=== PATIENT | male | born 1955 | race Caucasian/White ===

== ENCOUNTER → 2016-05-25 | Outpatient (CLI) | payer OTHER ==
[2016-05-25 07:30] LABS: HEMOGLOBIN A1C 8.18 % (4.2-6.0); MEAN BLOOD GLUCOSE (CALC) 186.394 mg/dL
[2016-05-25 07:31] LABS: ASPARTATE AMINO TRANSFERASE 50 IU/L (21-57); BILIRUBIN,TOTAL 0.8 mg/dL (0.3-1.2); BLOOD UREA NITROGEN 17 mg/dL (7-22); BUN/CREATININE RATIO 28.33 (6-20); CALCIUM 8.6 mg/dL (8.7-10.7); CHLORIDE 105 meq/L (98-112); CREATININE 0.6 mg/dL (0.70-1.50); EST GLOMERULAR FILTRATION > 60 (>60 ml/min/1.73m(2)); GLUCOSE 178 mg/dL (78-110); HDL CHOLESTEROL 27 mg/dL (40-150); POTASSIUM 4.5 meq/L (3.8-5.2); SODIUM 138 meq/L (135-145); TOTAL PROTEIN 7.2 g/dL (6.1-8.0); TRIGLYCERIDES 131 mg/dL (44-200)
[2016-05-25 07:37] LABS: CREATININE, URINE 230.9 MG/DL (15-500)
== END ==
LOC: LAB 07:04
PROVIDERS: ATTEND Internal Medicine
DX: E11.9 Type 2 diabetes mellitus without complications (principal); E78.5 Hyperlipidemia, unspecified
CPT/HCPCS: 36415; 80053; 80061; 82043; 82550; 83036

== ENCOUNTER 2016-06-16 02:29 | Observation (INO) | payer OTHER ==
[2016-06-16] MEDS: Sodium Chloride 0.9% 1,000 ML PRIMARY IV ONE ×2 (02:34→04:00)
[2016-06-16] MEDS ORDERED: LORazepam 2 MG/1 ML VIAL IVP ONE (02:43)
[2016-06-16] MEDS ORDERED: MORPHINE SULFATE 4 MG/1 ML IVP ONE (02:43)
[2016-06-16] MEDS: NITROGLYCERIN 0.4 MG SL TAB (BOTTLE OF 3) SL ONE ×2 (02:43→03:25)
[2016-06-16] MEDS ORDERED: ASPIRIN 81 MG (BABY) CHEWABLE TABLET PO ONE (02:45)
[2016-06-16 02:48] LABS: BASOPHILS # (AUTO) 0.03 10*3/UL; BASOPHILS % (AUTO) 0.2 % (0-1); EOSINOPHILS % (AUTO) 0.3 % (0-8); HEMATOCRIT 51.6 % (42.0-52.0); HEMOGLOBIN 18.4 g/dL (14.0-18.0); IMM GRAN % (AUTO) 0.2 % (0-5); IMM GRAN# (AUTO) 0.03 10*3/UL; LYMPHOCYTES # (AUTO) 2.88 10*3/uL; LYMPHOCYTES % (AUTO) 20.1 % (10-50); MEAN CORPUSCULAR HEMOGLOBIN 32.4 PG (27-31); MEAN CORPUSCULAR HGB CONC 35.7 g/dL (33-37); MEAN PLATELET VOLUME 10.5 FL (7.4-12.2); MONOCYTES # (AUTO) 1.36 10*3/UL (0.3-0.8); MONOCYTES % (AUTO) 9.5 % (5-15); NEUTROPHILS # (AUTO) 9.95 10*3/UL; NEUTROPHILS % (AUTO) 69.7 % (50-80); PLATELET MORPHOLOGY COMMENT NORMAL MORPHOLOGY (NORM); RDW COEFFICIENT OF VARIATION 12.5 % (11.5-14.5); RED BLOOD COUNT 5.68 10^6/uL (4.70-6.10)
[2016-06-16] MEDS: ONDANSETRON 4 MG/2 ML VIAL IVP ONE ×2 (02:50→03:45)
--- NOTE | 2016-06-16 02:50 | PDOC ---
Chest Pain HPI - General Chief Complaint: Chest Pain Stated Complaint: LEFT JAW PAIN THAT RADIATES TO L SHOULDER/WRIST Date Seen by Provider: 06/16/16 Time Seen by Provider: 02:47 Source: Patient Exam Limitations: POSITIVE: No limitations Treatment Prior to Arrival: REPORTS: None Nurse's Notes Reviewed & Considered: Yes - History of Present Illness Initial Comments: Patient comes in to the chief complaint of chest pain. Tonight at approximately 7:30 patient began to develop left-sided chest pain with radiation to his neck shoulder and elbow on the left. He has associated shortness of breath. He has been having some diaphoresis, with nausea but no vomiting. He attempted to go to sleep however, the pain kept him from sleeping. He is coming in now for further evaluation. Patient has a known left bundle-branch block. Body Location Affected: REPORTS: Neck, Chest Timing: REPORTS: Abrupt Duration: 4-6 hours Severity: Moderate Context: REPORTS: Rest Quality: REPORTS: Sharpness, Stabbing, Pressure Radiation: REPORTS: Jaw (L), Neck (L), Shoulder (L), Arm (L) Associated Symptoms: REPORTS: Nausea, Diaphoresis, Shortness of Breath Modifying Factors: improves with: None Reported Similar Symptoms Previously: Yes (10 years ago) Recently seen/treated/hospitalized: No Any Prior Injuries Related to Current Complaint?: No - Patient Home Medications Home Medications: Home Medications Dapagliflozin/Metformin HCl [Xigduo Xr 10 Mg-1,000 Mg Tab] 1 each PO QD #90 tab 09/23/15 Rivaroxaban [Xarelto] 1 tab PO QPM #90 tab 09/23/15 Lorazepam 1 tab PO QHS PRN #90 09/28/15 Tizanidine HCl 1 - 2 tab PO QHS PRN #30 tab 10/05/15 Atorvastatin Calcium [Lipitor] 1 tab PO QHS #90 tab-cap 11/28/15 Losartan Potassium 0.5 tab PO QD #45 tab 05/28/16 Meloxicam 1 tab PO DAILY #90 tab 06/06/16 Sitagliptin Phos/Metformin HCl [Janumet 50-1,000 mg Tablet] 1 each PO DAILY 07/30 - Patient Allergies Allergies/Adverse Reactions: Allergies Allergy/AdvReac Type Severity Reaction Status Date / Time No Known Drug Allergies Allergy NOT Verified 06/16/16 02:32 APPLICABLE Past Medical History - heen HEENT History: Denies History Cardiovascular History: Hypertension, DVTs, Hyperlipidemia Respiratory History: Pulmonary Embolism Additional Respiratory History: had PE in April 2011 Gastrointestinal History: GI Bleed Additional Gastrointestinal History: s/p colonoscopy 12/27 12 2 polyps removed Genitourinary History: Denies History Endocrine History: Type 2 Diabetes (oral) Additional Endocrine History: take blood sugar in the morning and sometimes during the day--takes metformin 1000 mg in the morning-- Musculoskeletal History: Muscle Weakness, Other (please comment) Prosthesis or Implant: No Additional Musculoskeletal History: HX OF DVT, leg cramps Neurological History: Denies History Additional Neurological History: RECENT HEADACHE . HAD CT OF HEAD,WHICH WAS NEGATIVE Blood Disorders: Previous Bld Transfusions Psychiatric History: Denies History History of Sexually Transmitted Diseases: No Male Reproductive History: Denies History Cancer History: Denies History In Past Year Been Physically Harmed or Verbally Threatened: No History of MDRO: No History of Other Communicable Diseases: No Tobacco Use: Current Every Day Smoker Alcohol Use: Rarely Substance Use Type: None Previous Surgical History: Yes Type / Date of Surgery: bilat shoulderbilat kneelt achilles tendoncolonoscopy Anesthesia Reactions: No Significant Family History: No pertinent family hx ROS - Limitations ROS Limitations: No Limitations Constitution: REPORTS: Diaphoresis Cardiovascular: REPORTS: Chest Pain Respiratory: REPORTS: Shortness Of Breath Neurological: REPORTS: Denies Neuro Symptoms Gastrointestinal: REPORTS: Nausea Endocrine: REPORTS: Denies Symptoms Musculoskeletal: REPORTS: Denies MS Symptoms Genitourinary: REPORTS: Denies Symptoms Eyes: REPORTS: Denies Symptoms ENT: REPORTS: Denies Symptoms Skin: REPORTS: Denies Skin Symptoms Lympathic: REPORTS: Denies Lympathic Symptoms Immunologic: POSITIVE: Denies Symptoms Psychiatric: POSITIVE: Anxiety Chest Pain PE - General Appearance General Appearance: REPORTS: Alert, Cooperative, No Evidence of Trauma, Moderate Distress - HEENT HEENT: POSITIVE: Head Inspection Nml, Eyes Inspection Nml, Ears Inspection Nml, Nose Inspection Nml, PERRL, EOMI - Neck Neck: REPORTS: Normal Inspection, No Carotid Bruit - Respiratory Respiratory: REPORTS: Breath Sounds Normal, Chest Non-Tender - Cardiovascular Cardiovascular: REPORTS: Regular Rate and Rhythm, Heart Sounds Normal - Abdomen Abdomen: Soft: (All Quadrants), Normal Bowel Sounds: (All Quadrants), Denies Tenderness: (All Quadrants) - Skin Skin: REPORTS: Intact, Normal For Race, Warm, Diaphoresis - Extremities Extremity: Non-Tender: (All Extremities), Normal ROM: (All Extremities), Normal Inspection: (All Extremities) - Neurological / Psychological Neurological: POSITIVE: Affect Apporpriate, Oriented X3 Chest Pain Progress - Results Reviewed by me Xrays/CTs/US Reviewed by me: Yes Discussed with Radiologist: No Lab Results Reviewed: Yes Lab Results:: Laboratory Results 06/16/16 06/16/16 Range/Units 02:43 02:53 WBC 14.30 H (4.8-10.8) 10^3/uL RBC 5.68 (4.70-6.10) 10^6/uL Hgb 18.4 H (14.0-18.0) g/dL Hct 51.6 (42.0-52.0) % MCV 90.8 H (80-90) FL MCH 32.4 H (27-31) PG MCHC 35.7 (33-37) g/dL RDW Std Deviation 41.4 (39-50) fL RDW Coeff of Jossie 12.5 (11.5-14.5) % Plt Count 143 (140-350) 10*3/uL MPV 10.5 (7.4-12.2) FL Immature Gran % (Auto) 0.2 (0-5) % Neut % (Auto) 69.7 (50-80) % Lymph % (Auto) 20.1 (10-50) % [place] % (Auto) 9.5 (5-15) % Eos % (Auto) 0.3 (0-8) % Baso % (Auto) 0.2 (0-1) % Immature Gran # (Auto) 0.03 10*3/UL Neut # (Auto) 9.95 10*3/UL Lymph # (Auto) 2.88 10*3/uL [place] # (Auto) 1.36 H (0.3-0.8) 10*3/UL Eos # (Auto) 0.05 10*3/UL Baso # (Auto) 0.03 10*3/UL WBC Morphology Comment Normal morphology (NORM) Plt Morphology Comment Normal morphology (NORM) RBC Morph Comment Normal morphology (NORM) PT 13.2 H (9.7-11.4) secs INR 1.28 (0.00-5.90) N/A D-Dimer 0.42 (0.00-0.59) mg/L Sodium 138 (135-145) meq/L Potassium 4.4 (3.8-5.2) meq/L Chloride 102 (98-112) meq/L Carbon Dioxide 23 (23-33) meq/L Anion Gap 13 (5-20) BUN 17 (7-22) mg/dL Creatinine 0.7 (0.70-1.50) mg/dL Estimated GFR > 60 (>60 ml/min/1.73m(2)) BUN/Creatinine Ratio 24.28 H (6-20) Glucose 134 H (78-110) mg/dL Calculated Osmolality 289.0 (267-292) mOsm/kg Calcium 9.7 (8.7-10.7) mg/dL Magnesium 1.7 (1.6-2.4) mg/dL Total Bilirubin 1.1 (0.3-1.2) mg/dL AST 33 (21-57) IU/L ALT 54 (21-72) IU/L Alkaline Phosphatase 97 (38-126) IU/L Troponin I < 0.012 (< 0.040) ng/mL NT-Pro-B Natriuret Pep 54.6 (0-125) PG/ML Total Protein 7.9 (6.1-8.0) g/dL Albumin 4.8 (3.5-4.8) g/dL Globulin 3.1 (2.50-4.10) g/dL Albumin/Globulin Ratio 1.50 (1.3-2.0) mg/g TSH 3.34 (0.2700-4.2000) uIU/mL EKG Interpreted/Reviewed By Me:: Yes EKG Interpretation:: POSITIVE: Abnormal EKG (Sinus with a sinus bradycardia and a left bundle branch block. No ST elevation is noted.), Repeat EKG - Patient's Progress Pain Medication Addressed: POSITIVE: Yes Re-Examine Time: 03:42 Status: POSITIVE: Unchanged MDM / ED Course: Patient was examined, an IV started, blood drawn and sent to the lab for studies , 2 EKGs were obtained, and chest x-ray. Patient received sublingual nitroglycerin which resulted in improvement of his pain. He had episode of bradycardia after the sublingual nitroglycerin. Patient received a liter of normal saline, morphine sulfate, and Zofran. Findings: EKG shows left bundle branch block with a sinus rhythm. The first EKG showed a sinus tachycardia with a rate of 100 minute and a left bundle branch block per my interpretation. Second EKG after receiving nitroglycerin and development of bradycardia showed sinus bradycardia with a left bundle branch block and a rate of approximately 55 beats a minute. No ST elevations were found per my application on either of these EKGs. Laboratory findings: Troponin, d-dimer is normal, CBC shows a white count of 14, BNP is normal, TSH is normal. Chest x-ray per my interpretation shows no acute cardiopulmonary decompensation. Assessment: Chest pain in a patient with positive risk factors which includes diabetes mellitus. Plan: Admission, rule out [place]. Quality Measure Initiative: CP/AMI: POSITIVE: EKG, ASA, ACS Risk Quality Measure Initiative: CAP: POSITIVE: VS, CXR or CT - Consult Consult (If Yes, Name of Consulting MD & Time Called): Yes (Dr. Dumont: [phone]) Consulting MD will see pt:: POSITIVE: [facility] [place] Admit Counseled: POSITIVE: Patient, Family, RE: Lab Results, RE: Radiology Results, RE : DX Patient Care Time - Estimated PCT Patient Care Time (In Minutes): 30 Vital Signs - VS Reviewed Vital Signs Reviewed: Yes Discharge Clinical Impression: Chest pain Discharge Disposition: Admit to Inpatient Condition: Stable Patient Instructions Given at Discharge: Chest Pain (ED) Date Decision to Admit to Inpatient: 06/16/16 Time Decision to Admit to Inpatient: 03:44
[2016-06-16 02:52] LABS: ASPARTATE AMINO TRANSFERASE 33 IU/L (21-57); BILIRUBIN,TOTAL 1.1 mg/dL (0.3-1.2); BLOOD UREA NITROGEN 17 mg/dL (7-22); BUN/CREATININE RATIO 24.28 (6-20); CALCIUM 9.7 mg/dL (8.7-10.7); CHLORIDE 102 meq/L (98-112); CREATININE 0.7 mg/dL (0.70-1.50); EST GLOMERULAR FILTRATION > 60 (>60 ml/min/1.73m(2)); GLUCOSE 134 mg/dL (78-110); POTASSIUM 4.4 meq/L (3.8-5.2); SODIUM 138 meq/L (135-145); TOTAL PROTEIN 7.9 g/dL (6.1-8.0)
[2016-06-16 02:58] LABS: PROTHROMBIN TIME 13.2 secs (9.7-11.4)
[2016-06-16 02:58] LABS: MAGNESIUM 1.7 mg/dL (1.6-2.4)
[2016-06-16] MEDS ORDERED: NORMAL SALINE 10 ML SYRINGE FLUSH IVP PRN (04:39)
[2016-06-16] MEDS ORDERED: ONDANSETRON 4 MG/2 ML VIAL IVP PRN (05:11)
[2016-06-16] MEDS ORDERED: Sodium Chloride 0.9% 1,000 ML PRIMARY IV SCH (05:15)
--- NOTE | 2016-06-16 05:17 | EKG ---
[address] [address] Measurements Intervals [place] Rate: 100 P: 79 MD: 162 QRS: -23 QRSD: 146 T: 112 QT: 362 QTc: 419 Interpretive Statements SINUS TACHYCARDIA LEFT BUNDLE BRANCH BLOCK Compared to ECG 12/04/2013 07:23:38 Sinus rhythm no longer present Electronically Signed On 06-16-16 15:24:09 [facility] by Piotr Buchanan [email or web address]
[2016-06-16] MEDS ORDERED: MORPHINE SULFATE 2 MG/1 ML IVP PRN (05:50)
--- NOTE | 2016-06-16 05:56 | EKG ---
[address] [place] [address] Measurements Intervals [place] Rate: 56 P: 46 GA: 143 QRS: -40 QRSD: 158 T: 124 QT: 433 QTc: 425 Interpretive Statements SINUS BRADYCARDIA LEFT AXIS DEVIATION LEFT BUNDLE BRANCH BLOCK Compared to ECG 06/16/2016 02:35:05 Sinus tachycardia no longer present Electronically Signed On 06-16-16 15:23:16 [facility] by Piotr Buchanan [email or web address]
--- NOTE | 2016-06-16 05:59 | PDOC ---
History and Physical - History of Present Illness Date and Time of Service: 06/16/2016 5:52 AM Chief Complaint: Chest pain started last night History of Present Illness: This is a 60 years old male with medical history significant for history of diabetes, history of previous DVT and PE, hypercholesterolemia who came into the hospital because of history of chest pain. He said at 7 PM last night he was sitting in a chair and then started to have some pain he described as sharp in the left side of the jaw coming and going and also the left neck then he started to have some pain in the left upper chest more towards the shoulder then had pain in left the arm there was some dizziness, shortness of breath and the some sweating. He could not sleep and because of that he came into the ER this morning. In the ER he was giving nitroglycerin he thinks that helped his pain. He rated his pain when he came in 8 out of 10. He did have some nausea also. Never had this pain before. After the nitroglycerin his pain improved and he was admitted for further investigations. He feels better than when he came in. Still have some pain in the left shoulder described more as aching rated 3 out of 10. Past Medical History Medical History: 1. Diabetes on oral hypoglycemic agents. 2. History of DVT and previous PE on Xarelto. 3. History of colonic polyp 2011. 4. History of transient atrial fibrillation after a GI bleeding post colonoscopy, he had a stress test and an angiogram done in 2011 was normal according to him. 5. Sleep apnea. 6. Hypercholesterolemia. 7. He is on losartan but he said it's more for protecting the kidneys Surgical History: 1. History of neck surgery 18 months ago. 2. History of previous knee scopes Pertinent Family History: History of heart disease in his father Past Social History: Used to smoke heavily more than a pack a day for 20 years, now just smokes occasionally cigars, drinks occasionally no drugs. Tobacco Use: Current Every Day Smoker Substance Use Type: None Alcohol Use: Occasionally Medication / Allergies Home Medications: Home Medications Medication Instructions Recorded Confirmed Type Dapagliflozin/Metformin HCl 1 each PO QD #90 tab 09/23/15 06/16/16 Clinic [Xigduo Xr 10 Mg-1,000 Mg Tab] Rivaroxaban [Xarelto] 1 tab PO QPM #90 tab 09/23/15 06/16/16 Clinic Lorazepam 1 tab PO QHS PRN #90 09/28/15 06/16/16 Clinic Tizanidine HCl 1 - 2 tab PO QHS PRN #30 tab 10/05/15 06/16/16 Clinic Atorvastatin Calcium [Lipitor] 1 tab PO QHS #90 tab-cap 11/28/15 06/16/16 Clinic Losartan Potassium 0.5 tab PO QD #45 tab 05/28/16 06/16/16 [facility] Meloxicam 1 tab PO DAILY #90 tab 06/06/16 06/16/16 Clinic Sitagliptin Phos/Metformin HCl 1 each PO DAILY 06/16/16 06/16/16 History [Janumet 50-1,000 mg Tablet] Allergies/Adverse Reactions: Allergies Allergy/AdvReac Type Severity Reaction Status Date / Time No Known Drug Allergies Allergy NOT Verified 06/16/16 08:05 APPLICABLE Review of Systems - Review of Systems All Systems: Reviewed & No Additional Complaints Except as Stated Exam - Vitals Vital Signs: Vital Signs Temperature 98.8 F Temperature Source Temporal Artery Scan Pulse Rate [Telemetry] 84 Respiratory Rate 18 Blood Pressure [Left Arm] 105/70 Pulse Ox 93 Oxygen Flow Rate 1.5 Oxygen Delivery Method Nasal Cannula Height 6 ft 4 in Weight 244 lb - General General Appearance: POSITIVE: No Acute Distress, Cooperative - Head Head Exam: POSITIVE: Normal Inspection, Atraumatic - Eye Eye Exam: POSITIVE: Normal Appearance - ENT ENT Exam: POSITIVE: Normal Exam - Neck Neck Exam: POSITIVE: Normal Inspection - Respiratory Respiratory Exam: POSITIVE: Clear to Auscultation - Bilaterally - Cardiovascular Cardiovascular Exam: POSITIVE: RRR - GI/Abdominal GI/Abdominal Exam: POSITIVE: Normal Bowel Sounds, Non Tender, Non Distended, Soft - Rectal Rectal Exam: POSITIVE: Deferred - External Exam: POSITIVE: Deferred Exam: POSITIVE: Deferred - Extremities Extremities Exam: POSITIVE: Normal Inspection - Back Back Exam: POSITIVE: Normal Inspection - Neurological Neurological Exam: POSITIVE: Alert, Oriented x 3, CN II-XII Intact, Moves All Extremities Equally - Psychiatric Psychiatric Exam: POSITIVE: Normal Affect - Integumentary Integumentary Exam: POSITIVE: Normal Color Results - Labs CBC and BMP: 06/16/16 02:43 06/16/16 02:43 - EKG Data -: EKG Interpreted by Me Rate: Tachycardia EKG Shows Normal: Sinus Rhythm - EKG Data Additional EKG Details: Left bundle branch block which is old - Imaging Status: Image Reviewed by Me (Chest x-ray no obvious infiltrate, no cardiomegaly ) Assessment and Plan - Patient Problems (1) Chest pain Current Visit: Yes Status: Acute Comment: We will repeat his cardiac enzymes, his EKG showed left bundle branch block and this is old, and will order Lexiscan stress test. If his pain persiste I may speak with cardiology. (2) Diabetes Current Visit: Yes Status: Acute Comment: Same medications (3) History of DVT (deep vein thrombosis) Current Visit: Yes Status: Acute Comment: Continue Xarelto
[2016-06-16] MEDS ORDERED: NITROGLYCERIN 0.4 MG SL TAB (BOTTLE OF 3) SL PRN (06:11)
[2016-06-16] MEDS ORDERED: metFORMIN 500 MG TABLET PO SCH (09:00)
[2016-06-16] MEDS ORDERED: sitaGLIPtin Tab 100 MG TAB PO SCH (09:00)
[2016-06-16] MEDS ORDERED: LOSARTAN 25 MG TABLET PO SCH (09:00)
[2016-06-16] MEDS: DAPAGLIFLOZIN PO SCH (09:07)
[2016-06-16] MEDS: METFORMIN HCL PO SCH (09:07)
[2016-06-16 09:11] LABS: BASOPHILS # (AUTO) 0.03 10*3/UL; BASOPHILS % (AUTO) 0.3 % (0-1); EOSINOPHILS % (AUTO) 0.3 % (0-8); HEMATOCRIT 47.3 % (42.0-52.0); HEMOGLOBIN 16.1 g/dL (14.0-18.0); IMM GRAN % (AUTO) 0.3 % (0-5); IMM GRAN# (AUTO) 0.03 10*3/UL; LYMPHOCYTES # (AUTO) 2.52 10*3/uL; LYMPHOCYTES % (AUTO) 22.8 % (10-50); MEAN CORPUSCULAR HEMOGLOBIN 31.5 PG (27-31); MEAN PLATELET VOLUME 10.4 FL (7.4-12.2); MONOCYTES # (AUTO) 1.11 10*3/UL (0.3-0.8); NEUTROPHILS # (AUTO) 7.34 10*3/UL; NEUTROPHILS % (AUTO) 66.3 % (50-80); RDW COEFFICIENT OF VARIATION 12.5 % (11.5-14.5); RED BLOOD COUNT 5.11 10^6/uL (4.70-6.10); WHITE BLOOD COUNT 11.06 10^3/uL (4.8-10.8)
[2016-06-16 09:17] LABS: PLATELET MORPHOLOGY COMMENT NORMAL MORPHOLOGY (NORM)
--- NOTE | 2016-06-16 10:38 | DI ---
AP CHEST X-RAY, 06/16/2016 2:43 AM : Clinical History: Chest pain. Previous Exam: 09/08/2014. There is no acute soft tissue or bony abnormality. Heart size is normal. Lungs are clear. Mediastinal structures are normal. There are no pulmonary nodules. Reading: Normal chest x-ray. There has been no interval change.
[2016-06-16] MEDS: ACETAMINOPHEN 325 MG TABLET PO PRN ×2 (12:13→18:44)
[2016-06-16] MEDS ORDERED: Rivaroxaban Tab 10 MG TAB PO SCH (17:00)
[2016-06-16] MEDS ORDERED: SITAGLIPTIN PO SCH (17:00)
[2016-06-16] MEDS ORDERED: METFORMIN PO SCH (17:00)
[2016-06-16] MEDS ORDERED: ATORVASTATIN 20 MG TABLET PO SCH (21:00)
[2016-06-17] MEDS ORDERED: PANTOPRAZOLE 40 MG TABLET PO SCH (07:00)
[2016-06-17 07:53] VITALS: RESP 16
[2016-06-17] MEDS ORDERED: ASPIRIN 325 MG EC TABLET PO SCH (09:00)
--- NOTE | 2016-06-17 09:09 | PDOC(PROG) ---
Date and Time of Service: 06/17/2016 9 AM Interval History: Subjective Patient denying chest pain. No shortness of breath. No issues overnight. Yesterday did have some jaw symptoms but not as sharp as when he came in. Objective : Data - Labs CBC and BMP: 06/16/16 09:00 06/16/16 02:43 Labs - Last 24 Hours: Laboratory Results 06/16/16 06/16/16 Range/Units 09:00 14:57 WBC 11.06 H (4.8-10.8) 10^3/uL RBC 5.11 (4.70-6.10) 10^6/uL Hgb 16.1 (14.0-18.0) g/dL Hct 47.3 (42.0-52.0) % MCV 92.6 H (80-90) FL MCH 31.5 H (27-31) PG MCHC 34.0 (33-37) g/dL RDW Std Deviation 41.6 (39-50) fL RDW Coeff of Jossie 12.5 (11.5-14.5) % Plt Count 128 L (140-350) 10*3/uL MPV 10.4 (7.4-12.2) FL Immature Gran % (Auto) 0.3 (0-5) % Neut % (Auto) 66.3 (50-80) % Lymph % (Auto) 22.8 (10-50) % [place] % (Auto) 10.0 (5-15) % Eos % (Auto) 0.3 (0-8) % Baso % (Auto) 0.3 (0-1) % Immature Gran # (Auto) 0.03 10*3/UL Neut # (Auto) 7.34 10*3/UL Lymph # (Auto) 2.52 10*3/uL [place] # (Auto) 1.11 H (0.3-0.8) 10*3/UL Eos # (Auto) 0.03 10*3/UL Baso # (Auto) 0.03 10*3/UL WBC Morphology Comment Normal morphology (NORM) Plt Morphology Comment Normal morphology (NORM) RBC Morph Comment Normal morphology (NORM) Total Creatine Kinase 62 60 (55-170) IU/L Troponin I < 0.012 < 0.012 (< 0.040) ng/mL Objective : Exam - General General Appearance: No Acute Distress, Cooperative - Head Head Exam: Normal Inspection, Atraumatic - Eye Eye Exam: Normal Appearance - Neck Neck Exam: Normal Inspection - Respiratory Respiratory Exam: Clear to Auscultation - Bilaterally - Cardiovascular Cardiovascular Exam: RRR - GI/Abdominal GI/Abdominal Exam: Normal Bowel Sounds, Non Tender, Non Distended, Soft - External Exam: Deferred - Extremities Extremities Exam: Normal Inspection - Back Back Exam: Normal Inspection - Neurological Neurological Exam: Alert, Oriented x 3 - Psychiatric Psychiatric Exam: Normal Affect - Integumentary Integumentary Exam: Normal Color Assessment and Plan - Patient Problems (1) Chest pain Current Visit: Yes Status: Acute Comment: His enzymes were negative, he did have the Lexiscan stress test were waiting for the results (2) Diabetes Current Visit: Yes Status: Acute Comment: Same medications (3) History of DVT (deep vein thrombosis) Current Visit: Yes Status: Acute Comment: Continue Xarelto
[2016-06-17] MEDS: DAPAGLIFLOZIN PO SCH (09:21)
[2016-06-17] MEDS: METFORMIN HCL PO SCH (09:21)
--- NOTE | 2016-06-17 11:16 | STRESSTEST ---
[facility] [place] Interpretive Statements Patient had lexiscan stress test per protocol, his baseline BP was 120/80 heart rate was 81, baseline EKG was LBBB, after injection patient did have flushing sensation but no chest pain, EKG sinus rhythm LBBB., Conclusion EKG unchanged LBBB, await nuclear scan results. [email or web address]
[2016-06-17 13:04] VITALS: TEMP 97.9
--- NOTE | 2016-06-17 13:48 | DI ---
HISTORY: Acute chest pain, acute right jaw pain, chronic right back pain. TECHNIQUE: Stress and rest images. Stress images were performed with Lexiscan. FINDINGS: There are predominant fixed defect along the septum, and the inferior wall. These are mos t compatible with areas of scarring. No definite reversible defects noted to suggest ischemia. The ejection fraction is a proximally 61%. There is a focal area of wall motion abnormality along t he inferior septal region suspicious for paradoxical motion.. IMPRESSION: 1. Predominantly fixed defect along the septum, and inferior wall. These are most compatible with a reas of scarring.
--- NOTE | 2016-06-17 14:42 | DCSUMMARY ---
Hospitalization Summary Admit Date: 06/17/16 Discharge Date: 06/18/16 Hospital Course: Discharge diagnoses 1. Episode of chest pain resolved 2. Predominantly fixed defect along the septum and inferior wall 3. History of diabetes 4. History of previous PE and DVT 5. Hypercholesterolemia Hospital course This is a 60 years old male with medical history significant for history of diabetes, previous history of for DVT and PE, hypercholesterolemia who came into the hospital because of history of chest pain. He said at 7 PM the night before admission he was sitting in a chair and then started to have some pain described as sharp in the left side of the jaw coming and going and also the left neck area then he started to have some pain in the left upper chest more towards the shoulder and had pain in the left arm there was some dizziness, shortness of breath and some sweating. Could not sleep and because of that he came into the ER. In the ER he was given nitroglycerin which he think that helped his pain. He rated his pain when he came in at about 8 out of 10. He did have some nausea also. Never had this pain before. After the nitroglycerin his pain improved and he was admitted for further investigation. His EKG showed left bundle branch block and that's old. We admitted him to the hospital we repeated his enzymes and they remained negative. He had the Lexiscan stress test which showed predominantly fixed defect along the septum and inferior wall. Because of the finding I asked Dr. George the automatic buffing wheel former to the review the imaging, he thinks the area looks concerning and needs more investigations. I spoke with the patient's and the patient agreed for transfer patient will be transferred to [facility] for further investigation. Laboratory Results 06/16/16 06/16/16 06/16/16 Range/Units 02:43 02:53 09:00 WBC 14.30 H 11.06 H (4.8-10.8) 10^3/uL RBC 5.68 5.11 (4.70-6.10) 10^6/uL Hgb 18.4 H 16.1 (14.0-18.0) g/dL Hct 51.6 47.3 (42.0-52.0) % MCV 90.8 H 92.6 H (80-90) FL MCH 32.4 H 31.5 H (27-31) PG MCHC 35.7 34.0 (33-37) g/dL RDW Std Deviation 41.4 41.6 (39-50) fL RDW Coeff of Jossie 12.5 12.5 (11.5-14.5) % Plt Count 143 128 L (140-350) 10*3/uL MPV 10.5 10.4 (7.4-12.2) FL Immature Gran % (Auto) 0.2 0.3 (0-5) % Neut % (Auto) 69.7 66.3 (50-80) % Lymph % (Auto) 20.1 22.8 (10-50) % Sargent % (Auto) 9.5 10.0 (5-15) % Eos % (Auto) 0.3 0.3 (0-8) % Baso % (Auto) 0.2 0.3 (0-1) % Immature Gran # (Auto) 0.03 0.03 10*3/UL Neut # (Auto) 9.95 7.34 10*3/UL Lymph # (Auto) 2.88 2.52 10*3/uL Sargent # (Auto) 1.36 H 1.11 H (0.3-0.8) 10*3/UL Eos # (Auto) 0.05 0.03 10*3/UL Baso # (Auto) 0.03 0.03 10*3/UL WBC Morphology Comment Normal morphology Normal morphology (NORM) Plt Morphology Comment Normal morphology Normal morphology (NORM) RBC Morph Comment Normal morphology Normal morphology (NORM) PT 13.2 H (9.7-11.4) secs INR 1.28 (0.00-5.90) N/A D-Dimer 0.42 (0.00-0.59) mg/L Sodium 138 (135-145) meq/L Potassium 4.4 (3.8-5.2) meq/L Chloride 102 (98-112) meq/L Carbon Dioxide 23 (23-33) meq/L Anion Gap 13 (5-20) BUN 17 (7-22) mg/dL Creatinine 0.7 (0.70-1.50) mg/dL Estimated GFR > 60 (>60 ml/min/1.73m(2)) BUN/Creatinine Ratio 24.28 H (6-20) Glucose 134 H (78-110) mg/dL Calculated Osmolality 289.0 (267-292) mOsm/kg Calcium 9.7 (8.7-10.7) mg/dL Magnesium 1.7 (1.6-2.4) mg/dL Total Bilirubin 1.1 (0.3-1.2) mg/dL AST 33 (21-57) IU/L ALT 54 (21-72) IU/L Alkaline Phosphatase 97 (38-126) IU/L Total Creatine Kinase 62 (55-170) IU/L Troponin I < 0.012 < 0.012 (< 0.040) ng/mL NT-Pro-B Natriuret Pep 54.6 (0-125) PG/ML Total Protein 7.9 (6.1-8.0) g/dL Albumin 4.8 (3.5-4.8) g/dL Globulin 3.1 (2.50-4.10) g/dL Albumin/Globulin Ratio 1.50 (1.3-2.0) mg/g TSH 3.34 (0.2700-4.2000) uIU/mL 06/16/16 Range/Units 14:57 WBC (4.8-10.8) 10^3/uL RBC (4.70-6.10) 10^6/uL Hgb (14.0-18.0) g/dL Hct (42.0-52.0) % MCV (80-90) FL MCH (27-31) PG MCHC (33-37) g/dL RDW Std Deviation (39-50) fL RDW Coeff of Jossie (11.5-14.5) % Plt Count (140-350) 10*3/uL MPV (7.4-12.2) FL Immature Gran % (Auto) (0-5) % Neut % (Auto) (50-80) % Lymph % (Auto) (10-50) % Sargent % (Auto) (5-15) % Eos % (Auto) (0-8) % Baso % (Auto) (0-1) % Immature Gran # (Auto) 10*3/UL Neut # (Auto) 10*3/UL Lymph # (Auto) 10*3/uL Sargent # (Auto) (0.3-0.8) 10*3/UL Eos # (Auto) 10*3/UL Baso # (Auto) 10*3/UL WBC Morphology Comment (NORM) Plt Morphology Comment (NORM) RBC Morph Comment (NORM) PT (9.7-11.4) secs INR (0.00-5.90) N/A D-Dimer (0.00-0.59) mg/L Sodium (135-145) meq/L Potassium (3.8-5.2) meq/L Chloride (98-112) meq/L Carbon Dioxide (23-33) meq/L Anion Gap (5-20) BUN (7-22) mg/dL Creatinine (0.70-1.50) mg/dL Estimated GFR (>60 ml/min/1.73m(2)) BUN/Creatinine Ratio (6-20) Glucose (78-110) mg/dL Calculated Osmolality (267-292) mOsm/kg Calcium (8.7-10.7) mg/dL Magnesium (1.6-2.4) mg/dL Total Bilirubin (0.3-1.2) mg/dL AST (21-57) IU/L ALT (21-72) IU/L Alkaline Phosphatase (38-126) IU/L Total Creatine Kinase 60 (55-170) IU/L Troponin I < 0.012 (< 0.040) ng/mL NT-Pro-B Natriuret Pep (0-125) PG/ML Total Protein (6.1-8.0) g/dL Albumin (3.5-4.8) g/dL Globulin (2.50-4.10) g/dL Albumin/Globulin Ratio (1.3-2.0) mg/g TSH (0.2700-4.2000) uIU/mL Discharge instruction Diet diabetic Activity as tolerated Medications Home Medications Medication Instructions Recorded Confirmed Type Dapagliflozin/Metformin HCl 1 each PO QD #90 tab 09/23/15 06/16/16 Clinic [Xigduo Xr 10 Mg-1,000 Mg Tab] Rivaroxaban [Xarelto] 1 tab PO QPM #90 tab 09/23/15 06/16/16 Clinic Lorazepam 1 tab PO QHS PRN #90 09/28/15 06/16/16 Clinic Tizanidine HCl 1 - 2 tab PO QHS PRN #30 tab 10/05/15 06/16/16 Clinic Atorvastatin Calcium [Lipitor] 1 tab PO QHS #90 tab-cap 11/28/15 06/16/16 Clinic Losartan Potassium 0.5 tab PO QD #45 tab 05/28/16 06/16/16 Clinic Meloxicam 1 tab PO DAILY #90 tab 06/06/16 06/16/16 Clinic Sitagliptin Phos/Metformin HCl 1 each PO DAILY 06/16/16 06/16/16 History [Janumet 50-1,000 mg Tablet] Follow-up per Dr. George postdischarge Exam - Vitals Vital Signs: Vital Signs Temperature 97.9 F Temperature Source Oral Pulse Rate [Pulse Oximeter] 62 Pulse Rate [Apical] 74 Pulse Rate [Telemetry] 76 Pulse Rate 62 Respiratory Rate 16 Blood Pressure [Left Arm] 136/85 Blood Pressure 92/56 Pulse Ox 92 Oxygen Flow Rate 1 Oxygen Delivery Method Room Air Height 6 ft 4 in Weight 245 lb 8 oz Patient Problems - Patient Problem List (1) Chest pain Current Visit: Yes Status: Acute (2) Diabetes Current Visit: Yes Status: Acute (3) History of DVT (deep vein thrombosis) Current Visit: Yes Status: Acute
== END 2016-06-17 17:43 | disposition short-term general hospital (02) ==
LOC: ER 02:29 → MED/SURG 03:53
PROVIDERS: ADMIT Internal Medicine; ATTEND Internal Medicine
DX: R07.9 Chest pain, unspecified (principal); R68.84 Jaw pain; Z86.718 Personal history of other venous thrombosis and embolism; Z86.711 Personal history of pulmonary embolism; E78.00 Pure hypercholesterolemia, unspecified; R94.39 Abnormal result of other cardiovascular function study
CPT/HCPCS: 36415; 71010; 78452; 80053; 82550; 82948 ×2; 83735; 83880; 84443; 84484; 85025; 85379; 85610; 93005; 93010; 93016; 93017; 93018; 94761; 96374; 96375; 99285 ×2; A9500; J2785; J2060; J2270; J2405; J7030

== ENCOUNTER → 2016-06-28 | Outpatient (CLI) | payer OTHER ==
--- NOTE | 2016-06-28 13:22 | DI ---
THORACIC SPINE SERIES, 06/28/2016 12:17 PM: Clinical History: Right-sided chest wall pain. Previous Exam: 09/08/2014. 3 routine upright views including a lateral swimmer's view are submitted. Since the previous exam, th e patient has undergone anterior cervical fusions between C4-5 through C7-T1. The vertebral bodies ar e of normal height and size with normal disc spaces. Pedicles and posterior elements are normal. Ther e are no paravertebral masses. Osteophytic spurring is present anteriorly throughout the entire lengt h of the thoracic spine and laterally on the right side from T6-7 through T11-12 and on the left side at T11-12. Readin. Osteophytic spurring is present as above, but the study is otherwise unremarkable and unchanged. 2. The patient has undergone cervical fusion between C4-5 through C7-T1.
== END ==
LOC: RAD 12:27
PROVIDERS: ATTEND Internal Medicine
DX: R07.89 Other chest pain (principal); Z98.1 Arthrodesis status
CPT/HCPCS: 72072

== ENCOUNTER → 2016-08-24 | Outpatient (CLI) | payer OTHER ==
[2016-08-24 16:33] LABS: HEMOGLOBIN A1C 7.44 % (4.2-6.0)
[2016-08-24 19:00] LABS: CREATININE, URINE 48.6 MG/DL (15-500)
== END ==
LOC: LAB 16:15
PROVIDERS: ATTEND Internal Medicine
DX: E11.9 Type 2 diabetes mellitus without complications (principal)
CPT/HCPCS: 36415; 82043; 83036